=== PATIENT | female | born 1995 | race Caucasian/White ===

== ENCOUNTER 2018-09-01 11:12 | Emergency (ER) | payer MEDICAID ==
[2018-09-01 12:28] VITALS: BMI 30.2
--- NOTE | 2018-09-01 12:57 | OBHP ---
Datetime: 09/01/2018 11:49 IP Adm Impression: , intrauterine IP Chief Complaint Other: flank pain, lower abdominal pain IP Admit Plan: Observation/Evaluation Admit Comment, IP Provider: Patient is a @ 15 wks reporting flank pain and lower abdominal p ressure. Denies dysuria, vaginal bleeding, no ctxns, no other positive signs/symptoms. Patient has a history of CHTN, currently on Labetalol 200mg PO BID, BPs in HAI were 130s/90s. Patient has a histor y of HTN and pre-eclampsia in previous with induction at 38 wks. On exam, no flank pain obs erved, no pain on palpation of abdomen. Will send UA and then re-evaluate Pelvic Type - PN: Adequate Extremities - PN: Normal Abdomen - PN: Normal Back - PN: Normal Breast - PN: Normal Lungs - PN: Normal Heart - PN: Normal Thyroid - PN: Normal Neurologic - PN: Normal HEENT - PN: Normal General - PN: Normal FHR - Baseline A Provider: 150s Vital Signs Provider: Reviewed; Within Normal Limits Genitourinary Exam: Normal DTRs - PN: Normal
[2018-09-01 13:43] LABS: SQUAMOUS EPITHIAL 3 /hpf (0-5); URINE AMORPHOUS SEDIMENT RARE /ul (<OCC); URINE BACTERIA MOD (<OCC); URINE BILIRUBIN NEGATIVE (NEGATIVE); URINE BLOOD MODERATE (NEGATIVE); URINE CLARITY CLOUDY (Clear); URINE COLOR YELLOW (YELLOW); URINE GLUCOSE (UA) NEG (NEGATIVE); URINE LEUKOCYTE ESTERASE LARGE Leu/uL (Negative); URINE PROTEIN 100 mg/dL (NEGATIVE); URINE UROBILINOGEN 0.2-1.0 mg/dL (0.2-1.0)
--- NOTE | 2018-09-01 14:34 | OBDCSUM ---
Datetime: 09/01/2018 14:05 Discharged to, Provider: Home Follow up at, Provider: Dr Zamorano Disch Instr Activity: Normal activity; May be up to bathroom; May be up for meals; May Shower Disch Instr Diet: Regular Discharge Time: 09/01/2018 14:08 Follow up in weeks, Provider: 09/15/2018 Disch Referrals: None Discharge Diagnosis Prov Other: UTI in
--- NOTE | 2018-09-01 14:35 | OBHP ---
Datetime: 09/01/2018 14:16 Admit Comment, IP Provider: Patient's US results: + nitrates, LCE and blood wiht 98 WBC Indicative of acute cystitis Patient was given 100mg Macrobid x7 days and instructed to f/u with regular OB for visit as well a s repeat urine testing Return precautions reviewed Plan discussed with attending, Dr. Armond Christy MD OB Fellow Addendum by Dr. Leahy: I have evaluated patient and I aagree with the above
[2018-09-01 19:14] VITALS: BP 140/95; PULSE 118; O2SAT 100
== END 2018-09-01 14:10 | disposition home or self-care (01) ==
LOC: H.EROB2 11:12 → H.EROB 11:52 → H.EROB2 14:10
DX: O23.42 Unspecified infection of urinary tract in pregnancy, second trimester (principal); Z3A.15 15 weeks gestation of pregnancy